=== PATIENT | male | born 1965 | race Hispanic/Latino ===

== ENCOUNTER 2019-07-22 09:20 | Emergency (ER) | payer BC, OTHER ==
[2019-07-22 18:48] LABS: SARS-CoV-2 MS2 Positive; SARS-CoV-2 N Gene Positive; SARS-CoV-2 S Gene Positive; SARS-CoV-2 orf1ab Positive
== END 2019-07-22 10:46 | disposition home or self-care (01) ==
LOC: ERS 09:20
DX: U07.1 COVID-19 (principal); R05 Cough
CPT/HCPCS: 87635; 99283; U0003